=== PATIENT | female | born 1985 | race American Indian/Alaskan Native ===

== ENCOUNTER 2019-04-07 11:37 | Emergency (ER) | payer SELFPAY ==
[2019-04-07 11:46] VITALS: BP 139/91
--- NOTE | 2019-04-07 11:49 | Event Note ---
ED Screening Note Date of service: 04/07/19 (n) Time: 11:44 ED Screening Note: 34 y o female presents with bilateral foot and heel pain radiating upwards states limping , worsens with prolonged standing, limping on left This initial assessment/diagnostic orders/clinical plan/treatment(s) is/are subject to change based on patients health status, clinical progression and re- assessment by fellow clinical providers in the ED. Further treatment and workup at subsequent clinical providers discretion. Patient/guardian urged not to elope from the ED as their condition may be serious if not clinically assessed and managed. Initial orders include: 1. xray of left foot
--- NOTE | 2019-04-07 12:30 | Emergency Department Report ---
ED General Adult HPI - General Chief complaint: Extremity Injury, Lower Stated complaint: FEET SWELLING/PAIN Time Seen by Provider: 04/07/19 11:44 Source: patient Mode of arrival: Ambulatory Limitations: No Limitations - History of Present Illness Initial comments: Patient is a 34-year-old female that since emergency room with complaints of left heel pain. Patient states the pain is going on for 5 months. Patient states the pain is worse with walking and better with rest. Patient states the pain is absent. 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 Patient denies trauma. Patient states she has not seen anybody for this. Patient states she has taken ibuprofen with some relief -: Sudden Location: lower extremity Radiation: non-radiation Severity scale (0 -10): 8 Quality: stabbing, aching Consistency: constant Improves with: rest Worsens with: movement Associated Symptoms: denies other symptoms. denies: confusion, chest pain, cough, diaphoresis, fever/chills, headaches, loss of appetite, malaise, nausea/vomiting, rash, seizure, shortness of breath, syncope, weakness - Related Data Previous Rx's Medication Instructions Recorded Last Taken Type Naproxen [Naprosyn TAB] 500 mg PO BID PRN #15 tablet 04/07/19 Unknown Rx Allergies Allergy/AdvReac Type Severity Reaction Status Date / Time Penicillins Allergy Hives Verified 04/07/19 11:39 ED Review of Systems ROS: Stated complaint: FEET SWELLING/PAIN Other details as noted in HPI Comment: All other systems reviewed and negative Musculoskeletal: as per HPI Neurological: denies: paresthesias ED Past Medical Hx - Past Medical History Previous Medical History?: Yes Hx Asthma: Yes - Surgical History Past Surgical History?: Yes Additional Surgical History: Hernia Repair - Family History Family history: no significant - Social History Smoking Status: Former Smoker Substance Use Type: None - Medications Home Medications: Home Medications Medication Instructions Recorded Confirmed Last Taken Type Naproxen [Naprosyn TAB] 500 mg PO BID PRN #15 tablet 04/07/19 Unknown Rx ED Physical Exam - General Limitations: No Limitations General appearance: alert, in no apparent distress - Head Head exam: Present: atraumatic, normocephalic - Eye Eye exam: Present: normal appearance - ENT ENT exam: Present: mucous membranes moist - Neck Neck exam: Present: normal inspection - Respiratory Respiratory exam: Present: normal lung sounds bilaterally. Absent: respiratory distress - Cardiovascular Cardiovascular Exam: Present: regular rate, normal rhythm. Absent: systolic murmur, diastolic murmur, rubs, gallop - GI/Abdominal GI/Abdominal exam: Present: soft, normal bowel sounds - Extremities Exam Extremities exam: Present: normal inspection - Back Exam Back exam: Present: normal inspection - Neurological Exam Neurological exam: Present: alert, oriented X3 - Psychiatric Psychiatric exam: Present: normal affect, normal mood - Skin Skin exam: Present: warm, dry, intact, normal color. Absent: rash ED Course Vital Signs 04/07/19 11:44 Temperature 98.5 F Pulse Rate 93 H Respiratory 18 Rate Blood Pressure 139/91 O2 Sat by Pulse 100 Oximetry - Reevaluation(s) Reevaluation #1: I discussed all results with patient. I discussed plan of care with patient. Patient agrees with plan of care. Patient is stable for discharge. Patient will be discharged home. Patient given discharge instructions. Patient voiced understanding of discharge instructions 04/07/19 12:18 ED Medical Decision Making - Radiology Data Radiology results: image reviewed interpreted by me: No acute findings on x-ray but positive for a calcaneal spur - Medical Decision Making Patient is a 34-year-old female that presents emergency room with complaints of foot pain 5 months.. Patient's x-rays negative for acute findings but shows a heel spur. Patient's findings consistent with plantar fasciitis. Patient given outpatient treatment. Patient given discharge. - Differential Diagnosis plantar fasciitis. Heel spur. Heel pain Critical care attestation.: If time is entered above; I have spent that time in minutes in the direct care of this critically ill patient, excluding procedure time. ED Disposition Clinical Impression: Plantar fasciitis of left foot Heel pain Qualifiers: Laterality: left Qualified Code(s): M79.672 - Pain in left foot Heel spur Qualifiers: Laterality: left Qualified Code(s): M77.32 - Calcaneal spur, left foot Disposition: TO HOME OR SELFCARE Is pt being admited?: No Does the pt Need Aspirin: No Condition: Stable Instructions: Plantar Fasciitis (ED) Additional Instructions: Patient to follow up with primary care in 2-3 days. Patient to follow-up with orthopedist in 2-3 days. Patient take Tylenol or ibuprofen when necessary pain. Patient to stretch both feet twice a day. Patient to elevate feet. Prescriptions: Naproxen [Naprosyn TAB] 500 mg PO BID PRN #15 tablet PRN Reason: pain Referrals: MANDY CHOI MD [Staff Physician] - 2-3 Days TAMELA BROWN MD [Staff Physician] - 2-3 Days Time of Disposition: 12:32
--- NOTE | 2019-04-07 12:39 | XRay Report ---
LEFT FOOT 2 VIEWS INDICATION / CLINICAL INFORMATION: left foot/heel pain COMPARISON: None available. FINDINGS: BONES and JOINT(S): No acute fracture or subluxation. An inferior calcaneal enthesophyte is noted wit hout additional significant arthritis. SOFT TISSUES: No significant abnormality. ADDITIONAL FINDINGS: None. IMPRESSION: No acute abnormality of the left foot. Signer Name: Jose Yanez MD Signed: 04/07/2019 12:34 PM Workstation Name: [id number]
== END 2019-04-07 12:42 | disposition home or self-care (01) ==
LOC: ED 11:37
DX: M77.32 Calcaneal spur, left foot (principal); M72.2 Plantar fascial fibromatosis; J45.909 Unspecified asthma, uncomplicated; Z87.891 Personal history of nicotine dependence; Z88.0 Allergy status to penicillin

== ENCOUNTER 2019-05-01 19:19 | Emergency (ER) | payer SELFPAY ==
--- NOTE | 2019-05-01 19:32 | Emergency Department Report ---
Blank Doc - Documentation Documentation: 34-year-old female that presents with right hand pain and numbness sensation. Denies any other symptoms. No facial drooping. No headaches. No one sided weakness. This initial assessment/diagnostic orders/clinical plan/treatment(s) is/are subject to change based on patient's health status, clinical progression and re- assessment by fellow clinical providers in the ED. Further treatment and workup at subsequent clinical providers discretion. Patient/guardians urged not to elope from the ED as their condition may be serious if not clinically assessed and managed. Initial orders include: 1- Patient sent to [facility] for further evaluation and treatment 2- labs
[2019-05-01 19:51] LABS: Basophils % (Auto) 0.5 % (0.0-1.8); Eosinophils # (Auto) 0.6 K/mm3 (0.0-0.4); Eosinophils % (Auto) 10.4 % (0.0-4.3); Hematocrit 36.1 % (30.3-42.9); Hemoglobin 12.3 gm/dl (10.1-14.3); Lymphocytes # (Auto) 2.4 K/mm3 (1.2-5.4); Lymphocytes % (Auto) 39.5 % (13.4-35.0); Mean Corpuscular HGB Conc 34 % (30-34); Mean Corpuscular Volume 80 fl (79-97); Monocytes # (Auto) 0.6 K/mm3 (0.0-0.8); Monocytes % (Auto) 10.2 % (0.0-7.3); Platelet Count 273 K/mm3 (140-440); Red Blood Count 4.51 M/mm3 (3.65-5.03); Red Cell Distribution Width 16.5 % (13.2-15.2)
[2019-05-01 20:14] LABS: Alanine Aminotransferase 16 units/L (7-56); BUN/Creatinine Ratio 14; Blood Urea Nitrogen 13 mg/dL (7-17); Calcium 8.8 mg/dL (8.4-10.2); Hemolysis Index 25
[2019-05-01 22:23] VITALS: BP 142/88
--- NOTE | 2019-05-01 22:31 | Emergency Department Report ---
ED Neuro Deficit HPI - General Chief Complaint: Neuro Symptoms/Deficit Stated Complaint: NUMBNESS AND PAIN TO RIGHT ARM Time Seen by Provider: 05/01/19 19:31 Source: patient Mode of arrival: Ambulatory Limitations: No Limitations - History of Present Illness Initial Comments: 34-year-old Swapnil presents with department complaining of numbness and tingling to her right hand and fingers. States that she was in her vehicle when her elbow hit a hard object and afterwards she noticed some tingling sensation to her wrist and hand which has continued to linger. No swelling, no fever, chills, sweats -: days(s) (3) Location: right arm (hand finger region) Place: home Severity: mild Quality: tingling Improves With: none Worsens With: none Associated Symptoms: denies: cough, diaphoresis, fever/chills, loss of appetite, malise, nausea/vomiting, shortness of breath, syncope - Related Data Home Medications: Previous Rx's Medication Instructions Recorded Last Taken Type Naproxen [Naprosyn TAB] 500 mg PO BID PRN #15 tablet 04/07/19 Unknown Rx predniSONE [Deltasone] 50 mg PO QDAY #5 tab 05/01/19 Unknown Rx Allergies/Adverse Reactions: Allergies Allergy/AdvReac Type Severity Reaction Status Date / Time Penicillins Allergy Hives Verified 04/07/19 11:39 ED Review of Systems ROS: Stated complaint: NUMBNESS AND PAIN TO RIGHT ARM Other details as noted in HPI Comment: All other systems reviewed and negative ED Past Medical Hx - Past Medical History Hx Asthma: Yes - Surgical History Additional Surgical History: Hernia Repair - Social History Smoking Status: Never Smoker Substance Use Type: None - Medications Home Medications: Home Medications Medication Instructions Recorded Confirmed Last Taken Type Naproxen [Naprosyn TAB] 500 mg PO BID PRN #15 tablet 04/07/19 Unknown Rx predniSONE [Deltasone] 50 mg PO QDAY #5 tab 05/01/19 Unknown Rx ED Neuro Physical Exam - General Limitations: No Limitations General appearance: alert, in no apparent distress Suspected Stroke: No - Head Head exam: Present: atraumatic, normocephalic - Eye Eye exam: Present: normal appearance, PERRL, EOMI Pupils: Present: normal accommodation - ENT ENT exam: Present: mucous membranes moist - Neck Neck exam: Present: normal inspection - Respiratory Respiratory exam: Present: normal lung sounds bilaterally. Absent: respiratory distress - Cardiovascular Cardiovascular Exam: Present: regular rate, normal rhythm. Absent: systolic murmur, diastolic murmur, rubs, gallop - GI/Abdominal GI/Abdominal exam: Present: soft, normal bowel sounds - Extremities Exam Extremities exam: Present: normal inspection, other (there is tenderness with palpation to the cubital nerve. No tenderness to the left olecranon process. No swelling to the bursa sac. No Tinel sign. To the wrist, on no phalanx sign. Pulses 2+. Capillary refills are brisk. Warm to touch) - Back Exam Back exam: Present: normal inspection, full ROM - Neurological Exam Neurological exam: Present: alert, oriented X3, CN II-XII intact. Absent: motor sensory deficit, reflexes normal - NIHSS Assessment Interval: Baseline 1a. Level of Consciousness: alert/keenly responsive 1b. LOC Questions: answers both correctly 1c. LOC Commands: performs tasks correctly 2. Best Gaze: normal 3. Visual: no visual loss 4. Facial Palsy: normal symmetrical movement 5b. Motor Arm Right: no drift 5a. Motor Arm Left: no drift 6a. Motor Leg Left: no drift 6b. Motor Leg Right: no drift 7. Limb Ataxia: absent 8. Sensory: normal 9. Best Language: no aphasia 10. Dysarthria: normal 11. Extinction/Inattention: no abnormality Total Score: 0 Stroke Severity: No Stroke Symptoms - Psychiatric Psychiatric exam: Present: normal affect, normal mood - Skin Skin exam: Present: warm, dry, intact, normal color. Absent: rash ED Course Vital Signs 05/01/19 05/01/19 19:33 22:22 Temperature 99.1 F 98.9 F Pulse Rate 88 86 Respiratory 18 18 Rate Blood Pressure 140/91 Blood Pressure 142/88 [Right] O2 Sat by Pulse 100 100 Oximetry - Lab Data Result diagrams: 05/01/19 19:35 05/01/19 19:35 Lab Results 05/01/19 05/01/19 05/01/19 Range/Units 19:35 19:35 19:35 WBC 6.1 (4.5-11.0) K/mm3 RBC 4.51 (3.65-5.03) M/mm3 Hgb 12.3 (10.1-14.3) gm/dl Hct 36.1 (30.3-42.9) % MCV 80 (79-97) fl MCH 27 L (28-32) pg MCHC 34 (30-34) % RDW 16.5 H (13.2-15.2) % Plt Count 273 (140-440) K/mm3 Lymph % (Auto) 39.5 H (13.4-35.0) % Morrison % (Auto) 10.2 H (0.0-7.3) % Eos % (Auto) 10.4 H (0.0-4.3) % Baso % (Auto) 0.5 (0.0-1.8) % Lymph # 2.4 (1.2-5.4) K/mm3 Morrison # 0.6 (0.0-0.8) K/mm3 Eos # 0.6 H (0.0-0.4) K/mm3 Baso # 0.0 (0.0-0.1) K/mm3 Seg Neutrophils % 39.4 L (40.0-70.0) % Seg Neutrophils # 2.4 (1.8-7.7) K/mm3 Sodium 137 (137-145) mmol/L Potassium 4.3 (3.6-5.0) mmol/L Chloride 101.6 (98-107) mmol/L Carbon Dioxide 25 (22-30) mmol/L Anion Gap 15 mmol/L BUN 13 (7-17) mg/dL Creatinine 0.9 (0.7-1.2) mg/dL Estimated GFR > 60 ml/min BUN/Creatinine Ratio 14 % Glucose 80 (65-100) mg/dL Calcium 8.8 (8.4-10.2) mg/dL Total Bilirubin < 0.20 (0.1-1.2) mg/dL AST 17 (5-40) units/L ALT 16 (7-56) units/L Alkaline Phosphatase 62 (35-129) units/L Total Protein 7.3 (6.3-8.2) g/dL Albumin 4.0 (3.9-5) g/dL Albumin/Globulin Ratio 1.2 % HCG, Qual Negative (Negative) Critical care attestation.: If time is entered above; I have spent that time in minutes in the direct care of this critically ill patient, excluding procedure time. ED Disposition Clinical Impression: Upper extremity neuropathy Disposition: [id number] TO HOME OR SELFCARE Is pt being admited?: No Does the pt Need Aspirin: No Condition: Stable Instructions: Cubital Tunnel Syndrome (ED), Peripheral Neuropathy (ED) Additional Instructions: Please be sure to follow with the neurologist. We discussed different further evaluation and treatment options on your right arm as nerve conduction studies may be needed. Be sure to rest her arm has been discussed as well. 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 Utilize ice , steroids and rest for the next 3 days and then follow-up with neurology for further evaluation and treatment options Prescriptions: predniSONE [Deltasone] 50 mg PO QDAY #5 tab Referrals: KIRAN LEYVA [PHYSICIAN [employer] DEVELOPER STUDENT] - 3-5 Days GEENA SHANKS MD [Staff Physician] - 3-5 Days RANDALL ARGUELLES MD [Staff Physician] - 3-5 Days [facility], [Primary Care Provider] - 3-5 Days LAVINIA EVANS MD [Staff Physician] - 3-5 Days JONATHAN LENNON MD [Referring] - 3-5 Days Forms: Work/School Release Form(ED)
== END 2019-05-01 22:24 | disposition home or self-care (01) ==
LOC: ED 19:19
DX: G56.90 Unspecified mononeuropathy of unspecified upper limb (principal); J45.909 Unspecified asthma, uncomplicated; Z88.0 Allergy status to penicillin
CPT/HCPCS: 36415; 80053; 84703; 85025